=== PATIENT | male | born 1955 | race Caucasian/White ===

== ENCOUNTER 2016-07-04 16:01 | Emergency (ER) | payer OTHER ==
[2016-07-04 16:12] VITALS: BP 159/90; PULSE 87; TEMP 97.5; BMI 41.8
--- NOTE | 2016-07-04 16:23 | PDOC ---
History of Present Illness - General History Source: Patient Exam Limitations: No Limitations - History of Present Illness Initial Comments: 07/04/16 17:04 The patient is a 61 year old male with a PMHx of CHF, HTN, diabetes, previous kidney failure who presents to the ED with SOB and cough for 4 days. The patient reports associated wheezing. He states his SOB is exacerbated by standing up and lying down, and alleviated by sitting up. He reports the cough is nonproductive. He reports the cough is worse at night while lying down. He reports he went to his PCP yesterday, and the MATERIAL EXPEDITOR there did not find any positive findings. He reports cigarette smoking (1 pack/day since 1968). Patient states that he had a bad fall about a year ago, with subsequent kidney failure. He was on dialysis and in a senior care for some time. He has since regained his kidney function. He denies history of lung disease. He denies chest pain. He denies fever, chills, nausea, vomiting, diarrhea. He denies urinary complaints. <Ena Castillo - Last Filed: 07/04/16 17:04> - History of Present Illness Initial Comments: 07/04/16 17:15 Chief complaint: Shortness of breath History of present illness: Patient complains of increased shortness of breath for about 3 days with nonproductive cough. Shortness of breath is worse with exertion and with lying down, seems to be improved with sitting up. No fever or chills. Review of systems: No chest pain, abdominal pain and visual or focal neurologic symptoms Past medical history: Insulin-dependent diabetes, renal failure secondary to rhabdomyolysis, was receiving dialysis but kidney function improved and is now off dialysis, high blood pressure, congestive heart failure, psychiatric disease Medications: Coreg, Lasix, Cozaar, Plavix, perphenazine, Cymbalta, Elavil, hydroxyzine ALLERGIES: Aspirin Social history: One to 2 packs per day of cigarettes for greater than 30 years. Occasional social alcohol, none recently. No street drugs. , stable home and family Family history: Reviewed and noncontributory including early coronary artery disease, metabolic disease including diabetes, and cancer Physical exam: Alert and oriented 3, well-developed well-nourished, mild respiratory distress with tachypnea but no obvious dyspnea. Cheerful and cooperative Afebrile, vital signs normal except for mild tachypnea at 22/m but O2 sat maintained at 98% on room air. G ENT clear Neck supple without bruit mass or nodes Breath sounds are distant bilaterally, there is hyperresonance, but no wheezes rales or rhonchi CV S1 and S2 distant without murmur rub or gallop pulses full and symmetric no JVD or edema 84 and regular Abdomen benign Neurologic intact Extremities no CCE Skin clear, no rash, adequate turgor and what mucous membranes Impression: Probable acute exacerbation of chronic bronchitis/COPD, possible component of CHF, rule out pneumonia. Plan: Chest x-ray, EKG, nebulizer therapy, and further evaluation treatment depending on results. <Petar Berman - Last Filed: 07/09/16 07:34> - General Chief Complaint: Shortness of Breath Stated Complaint: SOB Time Seen by Provider: 07/04/16 16:13 Past History <Ena Castillo - Last Filed: 07/04/16 17:04> - Past Medical History Asthma: No Cancer: No Cardiac Disorders: No COPD: No CHF: No DVT: No Diabetes: Yes GI Disorders: Yes (IBS) HTN: Yes Psychiatric Problems: Yes (Depression) Lung CA: No Other medical history: KID FAILURE, - Surgical History Abdominal Surgery: No Lung Surgery: No - Immunization History Immunization Up to Date: No - Psycho/Social/Smoking Cessation Hx Anxiety: Yes Suicidal Ideation: Yes (NO CURRENT SI) Smoking Status: No Smoking History: Current every day smoker Have you smoked in the past 12 months: Yes Number of Cigarettes Smoked Daily: 20 Information on smoking cessation initiated: Yes 'Breaking Loose' booklet given: 07/04/16 Hx Alcohol Use: No Drug/Substance Use Hx: No Substance Use Type: None <Petar Berman - Last Filed: 07/09/16 07:34> - Past Medical History Allergies/Adverse Reactions: Allergies Allergy/AdvReac Type Severity Reaction Status Date / Time aspirin Allergy Intermediate Nausea Verified 07/04/16 16:02 Home Medications: Ambulatory Orders Amitriptyline HCl [Elavil -] 25 mg PO TID 09/25/13 Duloxetine HCl [Cymbalta -] 60 mg PO DAILY 09/25/13 Furosemide [Lasix -] 40 mg PO DAILY #10 tablet 09/25/13 Perphenazine 4 mg PO TID 09/25/13 Albuterol Sulfate Inhaler - [Ventolin HFA Inhaler -] 1 puff IH Q4H PRN #1 inhaler 07/04/16 Carvedilol [Coreg -] 12.5 mg PO BID 07/04/16 Clopidogrel Bisulfate [Plavix -] 75 mg PO DAILY 07/04/16 Guaifenesin AC [Robitussin-AC] 1 - 2 tsp PO HS PRN #90 ml MDD 2 07/04/16 Hydroxyzine HCl [Atarax -] 50 mg PO ASDIR 07/04/16 Levofloxacin [Levaquin] 500 mg PO DAILY #6 tablet 07/04/16 Losartan Potassium [Cozaar] 100 mg PO DAILY 07/04/16 Review of Systems - Review of Systems Able to Perform ROS?: Yes Comments:: 07/04/16 17:04 CONSTITUTIONAL: Absent: fever, chills, diaphoresis, generalized weakness, malaise, loss of appetite HEENT: Absent: rhinorrhea, nasal congestion, throat pain, throat swelling, difficulty swallowing, mouth swelling, ear pain, eye pain, visual changes CARDIOVASCULAR: Absent: chest pain, syncope, palpitations, irregular heart rate, lightheadedness , peripheral edema RESPIRATORY: Present: cough, shortness of breath, dyspnea with exertion, orthopnea, wheezing Absent: stridor, hemoptysis GASTROINTESTINAL: Absent: abdominal pain, abdominal distension, nausea, vomiting, diarrhea, constipation, melena, hematochezia GENITOURINARY: Absent: dysuria, frequency, urgency, hesitancy, hematuria, flank pain, genital pain MUSCULOSKELETAL: Absent: myalgia, arthralgia, joint swelling SKIN: Absent: rash, itching, pallor HEMATOLOGIC/IMMUNOLOGIC: Absent: easy bleeding, easy bruising, lymphadenopathy, frequent infections ENDOCRINE: Absent: unexplained weight gain, unexplained weight loss, heat intolerance, cold intolerance NEUROLOGIC: Absent: headache, focal weakness or paresthesias, dizziness, unsteady gait, seizure, mental status changes, bladder or bowel incontinence PSYCHIATRIC: Absent: anxiety, depression, suicidal or homicidal ideation, hallucinations. <Ena Castillo - Last Filed: 07/04/16 17:04> *Physical Exam - Vital Signs Last Vital Signs Temp Pulse Resp BP Pulse Ox 97.5 F L 87 22 159/90 98 07/04/16 16:02 07/04/16 16:02 07/04/16 16:02 07/04/16 16:02 07/04/16 16:02 <Ena Castillo - Last Filed: 07/04/16 17:04> - Vital Signs Last Vital Signs Temp Pulse Resp BP Pulse Ox 97.5 F L 87 22 159/90 98 07/04/16 16:02 07/04/16 16:02 07/04/16 16:02 07/04/16 16:02 07/04/16 16:02 <Petar Berman - Last Filed: 07/09/16 07:34> Medical Decision Making - Medical Decision Making 07/09/16 07:33 Blood glucose is 172 Chest x-ray is clear, without evidence of congestion, infiltrate, or other lung disease. There is mild cardiomegaly. Patient responded well to the nebulizer. His respiratory rate declined to 18, unlabored, and he feels much better. To continue symptomatic treatment, begin antibiotics and rest, and follow up with his primary physician. Fully ambulatory and in no distress, respiratory or otherwise, upon discharge to follow-up as directed <Ptear Berman - Last Filed: 07/09/16 07:34> *DC/Admit/Observation/Transfer - Attestations Scribe Attestion: 07/04/16 17:05 Documentation prepared by Ena Castillo, acting as medical office administrator for Petar Guzman MD. <Ena Castillo - Last Filed: 07/04/16 17:04> - Discharge Dispostion Admit: No <Petar Berman - Last Filed: 07/09/16 07:34> Diagnosis at time of Disposition: Bronchitis CHF (congestive heart failure) Qualifiers: Congestive heart failure type: unspecified congestive heart failure type Congestive heart failure chronicity: chronic Qualified Code(s): I50.9 - Heart failure, unspecified - Discharge Dispostion Disposition: HOME Condition at time of disposition: Improved - Prescriptions Prescriptions: Levofloxacin [Levaquin] 500 mg PO DAILY #6 tablet Guaifenesin AC [Robitussin-AC] 1 - 2 tsp PO HS PRN #90 ml MDD 2 PRN Reason: Cough Albuterol Sulfate Inhaler - [Ventolin HFA Inhaler -] 1 puff IH Q4H PRN #1 inhaler PRN Reason: shortness of breath, wheezing - Referrals Referrals: Abad Price MD [Primary Care Provider] - 2 Days - Patient Instructions Printed Discharge Instructions: DI for Acute Bronchitis Additional Instructions: Increase Lasix (furosemide) dose to 2 pills daily for 3 days. Take antibiotic, use inhaler as needed, and as directed, and cough medication at night. Return to ER if breathing is worse or if associated symptoms such as chest pain , fever, increased cough, lightheadedness, or dizziness ensue Otherwise follow-up with your primary physician in 2-3 days.
[2016-07-04] MEDS ORDERED: ALBUTEROL SO4 2.5/IPRATROPIUM 0.5 INH SOL 3 ML VIAL.NEB. NEB ONE (17:14)
[2016-07-04] MEDS: ALBUTEROL SO4 2.5/IPRATROPIUM 0.5 INH SOL 3 ML VIAL.NEB. NEB ONE (17:20)
--- NOTE | 2016-07-05 10:49 | EKG ---
Test Reason : Blood Pressure : / mmHG Vent. Rate : 084 BPM Atrial Rate : 084 BPM P-R Int : 156 ms QRS Dur : 162 ms QT Int : 466 ms P-R-T Axes : 015 -76 069 degrees QTc Int : 550 ms POOR DATA QUALITY, INTERPRETATION MAY BE ADVERSELY AFFECTED SINUS RHYTHM WITH PREMATURE VENTRICULAR COMPLEXES LEFT AXIS DEVIATION RIGHT BUNDLE BRANCH BLOCK MODERATE VOLTAGE CRITERIA FOR LVH, MAY BE NORMAL VARIANT ABNORMAL ECG NO PREVIOUS ECGS AVAILABLE Confirmed by SANTA TIM MD ([id number]) on 07/05/2016 10:49:10 AM Referred By: MD WEST Confirmed By:SANTA TIM MD
== END 2016-07-04 18:27 | disposition home or self-care (01) ==
LOC: FER 16:01
PROC: 3E0F7GC Introduction of Other Therapeutic Substance into Respiratory Tract, Via Natural or Artificial Opening (ICD-10-PCS; principal; 2016-07-04)
DX: J20.9 Acute bronchitis, unspecified (principal); I50.9 Heart failure, unspecified; I10 Essential (primary) hypertension; E11.9 Type 2 diabetes mellitus without complications; F32.9 Major depressive disorder, single episode, unspecified; N19 Unspecified kidney failure
CPT/HCPCS: 71020-TC; 93005; 99282-25

== ENCOUNTER 2016-07-17 12:25 | Emergency (ER) | payer OTHER ==
--- NOTE | 2016-07-17 12:40 | PDOC ---
History of Present Illness - General Chief Complaint: Respiratory Distress Stated Complaint: cough and left side pain Time Seen by Provider: 07/17/16 12:39 History Source: Patient Exam Limitations: No Limitations - History of Present Illness Initial Comments: 07/17/16 12:39 Chief complaint: I have respiratory distress HPI: The patient is a 61 year old male with a PMHx of CHF, HTN, diabetes, previous kidney failure who presents to the ED with SOB and a non productive cough He was seen in the ER 2 weeks ago for the same He was discharged on antibiotics which he took for 4 days but he does not believe this was sufficient. He has had no fevers or chills. He returns to the ER today because, although he has had left chest wall pain since his cough started (he believes related to coughing), last night, his cough intensified (he thinks this is because he drank a solution of Baking Soda and water to help his reflux) and after this, his chest was so painful that he could not reach behind him, he can to take a deep breath. He also reports SOB which is exacerbated by standing up and lying down, and alleviated by sitting up. He reports the cough is worse at night while lying down. He tried following up with his PMD but states that the TAKE AWAY MAN was the only person there and she told him to go to the hospital. Pt has had a long history of tobacco use (1 pack/day since 1968), currently, he smokes 1/2 pack per day. He denies history of lung disease. He denies fever, chills, nausea, vomiting, diarrhea. He denies urinary complaints. Medications: Coreg, Lasix, Cozaar, Plavix, perphenazine, Cymbalta, Elavil, hydroxyzine (compliant) ALLERGIES: Aspirin Social history: One to 2 packs per day of cigarettes for greater than 30 years. Occasional social alcohol, none recently. No street drugs. , stable home and family GENERAL/CONSTITUTIONAL: No: fever, chills, weakness, loss of appetite. HEAD, EYES, EARS, NOSE AND THROAT: No: change in vision, ear pain, discharge, sore throat, throat swelling. CARDIOVASCULAR: Yes: chest pain No: lightheadedness, palpitations, syncope RESPIRATORY: Yes: cough, shortness of breath No: wheezing, hemoptysis, stridor. GASTROINTESTINAL: No: nausea, vomiting, diarrhea, abdominal cramping, rectal bleeding, constipation. GENITOURINARY: No: dysuria, hematuria, frequency, urgency, flank pain. MUSCULOSKELETAL: No: back pain, neck pain, joint pain, muscle swelling or pain SKIN AND BREASTS: No: lesions, pallor, rash or easy bruising. NEUROLOGIC: No: headache, vertigo, paresthesias, weakness ENDOCRINE: No: unexplained weight gain or loss HEMATOLOGIC/LYMPHATIC: No: anemia, easy bleeding, swelling nodes. GENERAL: The patient is in no acute distress. HEAD: Normal with no signs of trauma. EYES: PERRLA, EOMI, sclera anicteric, conjunctiva clear. ENT: Ears normal, nares patent, oropharynx clear without exudates. Moist mucous membranes. NECK: Normal range of motion, supple without lymphadenopathy, JVD, or masses. LUNGS: Decreased breath sounds at bases, no wheezes, and no crackles. HEART:Regular rate and rhythm, normal S1 and S2 without murmur, rub or gallop. ABDOMEN: Soft, nontender, normoactive bowel sounds. No guarding, no rebound. No masses palpable. EXTREMITIES: Normal range of motion, no edema. No clubbing or cyanosis. No erythema, or tenderness. NEUROLOGICAL: Cranial nerves II through XII grossly intact. Normal speech. No focal neurological deficits. MUSCULOSKELETAL: Back non-tender to palpation, no CVA tenderness SKIN: Warm, Dry, normal turgor, no rashes or lesions noted. Past History - Past Medical History Allergies/Adverse Reactions: Allergies Allergy/AdvReac Type Severity Reaction Status Date / Time aspirin Allergy Intermediate Nausea and Verified 07/17/16 12:37 ringing in ears Home Medications: Ambulatory Orders Amitriptyline HCl [Elavil -] 25 mg PO TID 09/25/13 Duloxetine HCl [Cymbalta -] 90 mg PO DAILY 09/25/13 Furosemide [Lasix -] 40 mg PO DAILY #10 tablet 09/25/13 Perphenazine 4 mg PO TID 09/25/13 Carvedilol [Coreg -] 12.5 mg PO BID 07/04/16 Clopidogrel Bisulfate [Plavix -] 75 mg PO DAILY 07/04/16 Hydroxyzine HCl [Atarax -] 50 mg PO ASDIR PRN 07/04/16 Losartan Potassium [Cozaar] 100 mg PO DAILY 07/04/16 Albuterol Sulfate Inhaler - [Ventolin HFA Inhaler -] 1 - 2 inh PO QID PRN #1 inhaler 07/17/16 Benzonatate [Tessalon Pearls -] 100 mg PO TID PRN #21 capsule 07/17/16 Lidocaine 5% Patch [Lidoderm Patch -] 1 patch TP DAILY PRN #30 patch 07/17/16 Methocarbamol [Robaxin -] 500 mg PO TID PRN #30 tablet 07/17/16 Asthma: No Cancer: No Cardiac Disorders: No COPD: No CHF: No DVT: No Diabetes: Yes GI Disorders: Yes (IBS) HTN: Yes Psychiatric Problems: Yes (Depression) Lung CA: No - Surgical History Abdominal Surgery: No Lung Surgery: No - Immunization History Immunization Up to Date: No - Psycho/Social/Smoking Cessation Hx Anxiety: Yes Suicidal Ideation: Yes (NO CURRENT SI) Smoking Status: No Smoking History: Current every day smoker Have you smoked in the past 12 months: Yes Number of Cigarettes Smoked Daily: 20 'Breaking Loose' booklet given: 07/04/16 Hx Alcohol Use: No Drug/Substance Use Hx: No Substance Use Type: None ED Treatment Course - LABORATORY CBC & Chemistry Diagram: 07/17/16 12:00 07/17/16 14:00 Medical Decision Making - Medical Decision Making 07/17/16 12:39 07/17/16 13:07 Differential includes cardiac ischemia, pe, asthma exacerbation, pneumonia, pneumothorax, pleural effusion, costochondritis, pericarditis, GERD Will do labs Will do CXR Will re assess 07/17/16 13:58 CXR: cardiomegaly, increased interstitial markings Laboratory Tests 09/25/13 07/17/16 19:20 12:00 WBC 11.6 H 10.0 Hgb 10.9 L D 14.5 D Hct 32.5 L D 44.1 D Plt Count 305 D 376 D 07/17/16 16:02 Laboratory Tests 09/25/13 07/17/16 19:20 14:00 Sodium 130 L 137 Potassium 4.0 4.4 Chloride 94 L 100 Anion Gap 11 Carbon Dioxide 25 D 26 BUN 17 D 23 H D Creatinine 1.0 D 1.9 H D Random Glucose 363 H* 115 H D 07/17/16 16:02 BNP pending but pt's examination suggestive of CHF 07/17/16 16:42 Laboratory Tests 07/17/16 14:00 Creatine Kinase 246 H CK-MB (CK-2) 16.1 H Troponin I 0.08 D Pt CKMB concerning for cardiac ischemia!!!! Pt states he has previously been worked up already I do not believe this patient should go home I believe he needs to stay in the hospital given he was seen in the ER for similar complaints and treatment has NOT helped AND his symptoms are suggestive of heart failure I will not diurese this patient as an outpatient given his history of renal failure last year requiring dialysis as his current creatinine is 1.9 and last year it was 1.0!! he will need to be duiresed under supervision I have explained this this to the patient Pt leaves the ER AMA He is requesting a cough syrup, and treatment for his chest pain 07/17/16 17:01 Note: The patient insists on leaving the emergency dept and is signing out against medical advice. The patient understands the risks and complications that may result from the refusal of medical care and admission which includes and permanent disability. The patient has the mental capacity of understanding the risks of refusing care and is capable of making an informed decision. The patient was instructed to return to the emergency department should he change his mind regarding medical care or should his condition worsen. The patient signed the Against Medical Advice form. I have explained to this patient that he MUST see his PMD tomorrow *DC/Admit/Observation/Transfer Diagnosis at time of Disposition: Cough CHF (congestive heart failure) Qualifiers: Congestive heart failure type: combined Congestive heart failure chronicity: acute on chronic Qualified Code(s): I50.43 - Acute on chronic combined systolic (congestive) and diastolic (congestive) heart failure - Discharge Dispostion Disposition: AGAINST MEDICAL ADVICE Condition at time of disposition: Stable Admit: No - Prescriptions Prescriptions: Lidocaine 5% Patch [Lidoderm Patch -] 1 patch TP DAILY PRN #30 patch PRN Reason: Pain Methocarbamol [Robaxin -] 500 mg PO TID PRN #30 tablet PRN Reason: chest wall pain Benzonatate [Tessalon Pearls -] 100 mg PO TID PRN #21 capsule PRN Reason: Cough Albuterol Sulfate Inhaler - [Ventolin HFA Inhaler -] 1 - 2 inh PO QID PRN #1 inhaler PRN Reason: Wheezing - Patient Instructions Printed Discharge Instructions: DI for Cough -- Adult, DI for Heart Failure Additional Instructions: Mr Kaplan Thank you for coming in to the ER today You are leaving against Medical Advise Please follow up with your doctor within 1-2 days Please take medications as prescribed You can continue taking tylenol but you can add Robaxin for your chest wall pain For cough, you an take tessalon perles You can also use albuterol Please note, your kidney function has worsened since the last blood tests that I have available for you You may need a diuretic but this should be given to you and managed by your doctor Return to the ER for any other concerns or complaints
[2016-07-17] MEDS ORDERED: methylPREDNISolone NA SUCC 125 MG/2 ML VIAL IVPB ONE (12:41)
[2016-07-17] MEDS ORDERED: ALBUTEROL SO4 2.5/IPRATROPIUM 0.5 INH SOL 3 ML VIAL.NEB. NEB ONE ×2 (12:41→12:54)
[2016-07-17] MEDS ORDERED: methylPREDNISolone NA SUCC 125 MG/2 ML VIAL ONE (12:54)
[2016-07-17 12:57] VITALS: TEMP 98.6; BMI 41.8
[2016-07-17 13:30] LABS: BASOPHIL 1.5 % (0-2.0); EOSINOPHIL 3.3 % (0-4.5); MCH 29.4 pg (25.7-33.7); MEAN CELL VOLUME 89.3 fl (80-96); MEAN PLT VOLUME 7.8 fl (7.5-11.1); NEUTROPHILS 73.1 % (42.8-82.8); PLATELET COUNT 376 K/MM3 (134-434); RDW 14.7 % (11.9-15.9)
[2016-07-17 15:57] LABS: ALBUMIN 3.4 g/dl (3.5-5.0); ALK PHOS 120 U/L (32-92); ANION GAP 11 (8-16); BILIRUBIN,TOTAL 0.8 mg/dl (0.2-1.0); CALCIUM 9.2 mg/dl (8.4-10.2); CO2 26 mmol/L (22-28); CREATININE 1.9 mg/dl (0.6-1.3); GLUCOSE,RANDOM 115 mg/dl (74-106); SGOT/AST 33 U/L (10-42); SGPT/ALT 25 U/L (10-40); TOT PROT 6.8 g/dl (6.4-8.3)
[2016-07-17 16:27] LABS: TROPONIN I (DFP) 0.08 ng/ml (0.03-0.50)
[2016-07-17 16:34] LABS: CK MB 16.1 ng/ml (0.3-4.0)
[2016-07-17 17:05] VITALS: BP 177/100; PULSE 107
== END 2016-07-17 17:05 | disposition left against medical advice (07) ==
LOC: FER 12:25
PROC: 3E0F7GC Introduction of Other Therapeutic Substance into Respiratory Tract, Via Natural or Artificial Opening (ICD-10-PCS; principal; 2016-07-17)
PROC: 3E033GC Introduction of Other Therapeutic Substance into Peripheral Vein, Percutaneous Approach (ICD-10-PCS; 2016-07-17)
DX: I50.43 Acute on chronic combined systolic (congestive) and diastolic (congestive) heart failure (principal); R05 Cough; I10 Essential (primary) hypertension; E11.9 Type 2 diabetes mellitus without complications; F32.9 Major depressive disorder, single episode, unspecified; F17.210 Nicotine dependence, cigarettes, uncomplicated
CPT/HCPCS: 36415; 71020-TC; 80053; 82550; 82553; 83880; 84484; 85025; 94640; 96374; 99282-25